=== PATIENT | female | born 1975 | race African-American/Black ===

== ENCOUNTER 2017-06-01 15:03 | Emergency (ER) | payer OTHER ==
[~2017-06-01] VITALS: Ht 170.2 cm; Wt 77.1 kg
[~2017-06-01 15:03] MED LIST: CHLORHEXIDINE; CLEOCIN HCL300 MG PO; CLINDAMYCIN; IBUPROFEN 800800 MG PO; LORTAB; MICONAZOLE 745 GM; NORCO 5-325 TA1 EACH PO
[2017-06-01 15:40] LABS: URINE BILIRUBIN NEGATIVE (Negative); URINE BLOOD TRACE (Negative); URINE COLOR YELLOW; URINE GLUCOSE-RANDOM* NEGATIVE (Negative); URINE KETONES NEGATIVE (Negative); URINE NITRITE NEGATIVE (Negative); URINE PROTEIN (DIPSTICK) NEGATIVE (Negative); URINE SPECIFIC GRAVITY 1.015 (1.003-1.035)
[2017-06-01 16:03] LABS: ABSOLUTE NEUTROPHILS 7.2 thou/uL (1.4-8.2); BASOPHILS 0.8 % (0.0-2.0); EOSINOPHILS 2.3 % (0.0-3.0); HEMATOCRIT 41.9 % (37.0-47.0); HEMOGLOBIN 14.2 gm/dL (12.0-15.0); LYMPHOCYTES 20.9 % (24.0-44.0); MCHC 33.9 g/dL (28.0-37.0); MCV 94.4 fL (80.0-100.0); MONOCYTES 9.9 % (1.0-8.0); PLATELET COUNT 184 thou/uL (150-400); POLYS 66.1 % (36.0-66.0); RBC 4.44 mil/uL (4.20-5.00); RDW 14.1 % (10.5-14.5)
[2017-06-01 16:09] LABS: MANUAL DIFF NO
[2017-06-01 16:19] LABS: CALCIUM 9.2 mg/dL (8.5-10.1); CREATININE 1.1 mg/dL (0.6-1.0); POTASSIUM 3.8 mmol/L (3.5-5.1)
[2017-06-01 16:26] LABS: ALBUMIN 3.9 g/dL (3.4-5.0); DIRECT BILIRUBIN 0.1 mg/dL (<0.1-0.3); TOTAL BILIRUBIN 0.5 mg/dL (<0.1-1.0); TOTAL PROTEIN 6.9 g/dL (6.4-8.2)
[2017-06-01] MEDS ORDERED: PRILOSEC 20 MG20 MG PO (17:12)
[2017-06-01 17:28] VITALS: BP 152/69
== END 2017-06-01 17:28 | disposition home or self-care (01) ==
LOC: ER 15:03
PROVIDERS: Nurse Practitioner
DX: R10.13 Epigastric pain (principal); I10 Essential (primary) hypertension; F17.210 Nicotine dependence, cigarettes, uncomplicated; F10.99 Alcohol use, unspecified with unspecified alcohol-induced disorder; Z98.890 Other specified postprocedural states; Z88.0 Allergy status to penicillin

== ENCOUNTER 2018-06-19 17:03 | Emergency (ER) | payer OTHER ==
[~2018-06-19] VITALS: Ht 160 cm; Wt 87.1 kg
[~2018-06-19 17:03] MED LIST changes: +PRILOSEC 20 MG20 MG PO
[2018-06-19] MEDS ORDERED: UNICOMPLEX M TA1 TA1 PO (17:08)
[2018-06-19] MEDS ORDERED: PREDNISONE 20 M20 MG PO (18:33)
[2018-06-19] MEDS ORDERED: PROMETH-CODEIN 65 ML PO (18:33)
[2018-06-19] MEDS ORDERED: VENTOLIN HFA 1818 GM INH (18:38)
[2018-06-19 18:43] VITALS: BP 117/87
== END 2018-06-19 18:43 | disposition home or self-care (01) ==
LOC: ER 17:03
DX: J40 Bronchitis, not specified as acute or chronic (principal); I10 Essential (primary) hypertension; F17.210 Nicotine dependence, cigarettes, uncomplicated; Z88.0 Allergy status to penicillin